=== PATIENT | female | born 1970 | race Caucasian/White ===

== ENCOUNTER 2017-09-20 08:15 | Emergency (ER) | payer BC ==
[2017-09-20 08:28] VITALS: RESP 18; TEMP 97.2
[2017-09-20] MEDS ORDERED: predniSONE 20 MG TAB PO STA (09:00)
[2017-09-20] MEDS ORDERED: FAMOTIDINE 20 MG TAB PO STA (09:00)
[2017-09-20] MEDS ORDERED: diphenhydrAMINE 25 MG CAP PO STA (09:00)
--- NOTE | 2017-09-20 09:04 | ED ---
General Adult HPI - General Chief complaint: ENT Stated complaint: Allergic reaction Time Seen by Provider: 09/20/17 08:46 Source: patient Mode of arrival: ambulatory Limitations: no limitations - History of Present Illness Initial comments: This is a 47-year-old female with a history of hypertension on lisinopril who presents emergency department for lip swelling. She states it started this morning when she woke up. She states there was first associated the right side of her lip been generally got worse and involved entire upper lip. She states that she does not have any tongue swelling or oral swelling. She states that she has had this happen once before however is unsure what she is ALLERGIC to. She states that she was switched from hydrochlorothiazide to lisinopril at one point. Does not recall if it happened before while she was on lisinopril. Denies any itching or rashes. No hives. States that she has no trouble swallowing her secretions and does not feel like she is short of breath. No other acute complaints at this time. - Related Data Home Medications Medication Instructions Recorded Confirmed Apremilast [Otezla] 30 mg PO BID 09/20/17 09/20/17 Aviane 1 tab PO HS 09/20/17 09/20/17 Escitalopram [Lexapro] 10 mg PO DAILY 09/20/17 09/20/17 Naproxen Sodium [Aleve] 220 mg PO BID PRN 09/20/17 09/20/17 Previous Rx's Medication Instructions Recorded amLODIPine [Norvasc] 5 mg PO DAILY #30 tab 09/20/17 Allergies Allergy/AdvReac Type Severity Reaction Status Date / Time No Known Allergies Allergy Verified 09/20/17 08:40 Review of Systems ROS Statement: Those systems with pertinent positive or pertinent negative responses have been documented in the HPI. ROS Other: All systems not noted in ROS Statement are negative. Past Medical History Past Medical History: Hypertension Additional Past Medical History / Comment(s): psoriasis, peritonitis History of Any Multi-Drug Resistant Organisms: None Reported Past Surgical History: Bariatric Surgery Additional Past Surgical History / Comment(s): gastric bypass, explor. lap., surgery for twisted bowel Past Psychological History: Depression Smoking Status: Never smoker Past Alcohol Use History: Occasional Past Drug Use History: None Reported General Exam - General Exam Comments Initial Comments: Constitutional: Awake alert Appears comfortable Head: Normocephalic atraumatic Eyes: no conjunctival injection No scleral icterus EOMI ENT: There appears to be angioedema of the upper lip. Lower lip is noninvolved. Tongue and posterior pharynx are normal without any signs of edema. No erythema Neck: No JVD Supple Heart: Regular rate rhythm normal S1-S2 no murmurs Lungs: Clear to auscultation bilaterally No wheezing No rales Abdomen: Soft nondistended nontender Extremities: Non edematous DP pulses intact Radial pulses intact Neuro: A&Ox3 No focal neurologic deficits Psych: Appropriate mood and affect Limitations: no limitations Course Vital Signs 09/20/17 08:25 Temperature 97.2 F L Pulse Rate 80 Respiratory 18 Rate Blood Pressure 119/72 O2 Sat by Pulse 97 Oximetry Medical Decision Making - Medical Decision Making Is a 47-year-old female who presents emergency department for angioedema of her upper lip. She had no pharyngeal involvement or tongue involvement. She is given Benadryl, Pepcid, and prednisone. She was able tolerate these well. She had no progression of the swelling. The patient otherwise felt fine and felt like she was swallowing and breathing normal. At this time I'm going to send the patient home. I did advise her to stop taking her lisinopril and I wrote her for Norvasc to start tomorrow. She is close follow-up with her primary doctor. Advised not to take Ken inhibitors anymore and ALLERGIES will be updated in the chart. Disposition Clinical Impression: Angioedema Disposition: HOME SELF-CARE Condition: Stable Instructions: Angioedema (ED) Additional Instructions: Stop taking Lisinopril Prescriptions: amLODIPine [Norvasc] 5 mg PO DAILY #30 tab Referrals: Nonstaff,Physician [Primary Care Provider] - 1-2 days
[2017-09-20 10:14] VITALS: BP 139/76; PULSE 73
== END 2017-09-20 10:13 | disposition home or self-care (01) ==
LOC: EC 08:15
DX: T78.3XXA Angioneurotic edema, initial encounter (principal); I10 Essential (primary) hypertension; L40.9 Psoriasis, unspecified; F32.9 Major depressive disorder, single episode, unspecified; Z79.899 Other long term (current) drug therapy; Z79.3 Long term (current) use of hormonal contraceptives
CPT/HCPCS: 99283; J7512